=== PATIENT | female | born 1965 | race Caucasian/White ===

== ENCOUNTER 2018-06-06 21:29 | Emergency (ER) | payer BC ==
[2018-06-06 21:30] VITALS: BMI 37.5
[2018-06-06] MEDS ORDERED: Naproxen 550 mg Tab PO STA (22:08)
--- NOTE | 2018-06-06 22:22 | ED PDOC ---
Arrival/HPI - General Chief Complaint: Trauma Time Seen by Provider: 06/06/18 22:08 Historian: Patient - History of Present Illness Narrative History of Present Illness (Text): 06/06/18 22:19 53 year old female, with no significant past medical history, presents to the emergency department complaining of left ankle pain s/p fall. Patient fell down the last few steps of the stairs injuring her left ankle. Patient denies any numbness, decreased range of motion, head injury, loss of consciousness, back pain, neck pain, or any other complaints/injuries. Time/Duration: Prior to Arrival Symptom Onset: Sudden Symptom Course: Unchanged Activities at Onset: Light Context: Other (fell down the stairs) Past Medical History - Provider Review Nursing Documentation Reviewed: Yes - Tetanus Immunization Tetanus Immunization: Unknown - Cardiac Hx Cardiac Disorders: No - Pulmonary Hx Respiratory Disorders: No - Neurological Hx Neurological Disorder: No - HEENT Hx HEENT Disorder: No - Renal Hx Renal Disorder: Yes - Endocrine/Metabolic Hx Endocrine Disorders: Yes Hx Hypothyroidism: Yes - Hematological/Oncological Hx Blood Disorders: No - Integumentary Hx Dermatological Disorder: No - Musculoskeletal/Rheumatological Hx Musculoskeletal Disorders: No - Gastrointestinal Hx Gastrointestinal Disorders: No - Genitourinary/Gynecological Hx Genitourinary Disorders: No - Psychiatric Hx Psychophysiologic Disorder: No Hx Depression: No Hx Emotional Abuse: No Hx Physical Abuse: No Hx Substance Use: No - Surgical History Hx Section: Yes Other/Comment: Kidney - Suicidal Assessment Feels Threatened In Home Enviroment: No Family/Social History - Physician Review Nursing Documentation Reviewed: Yes Family/Social History: No Known Family HX Smoking Status: Never Smoked Hx Alcohol Use: No Hx Substance Use: No Allergies/Home Meds Allergies/Adverse Reactions: Allergies tramadol Adverse Reaction (Severe, Verified 06/06/18 21:52) seizure Review of Systems - Physician Review All systems were reviewed & negative as marked: Yes - Review of Systems Musculoskeletal: absent: Back Pain, Neck Pain, Other (decrease range of motion) Neurological: absent: Other ((-) loss of consciousness (-) numbness) Physical Exam Vital Signs Reviewed: Yes Appearance: Positive for: Well-Appearing, Non-Toxic, Comfortable Pain Distress: Mild Mental Status: Positive for: Alert and Oriented X 3 - Systems Exam Head: Present: Atraumatic, Normocephalic Upper Extremity: Present: Normal Inspection. No: Cyanosis, Edema Lower Extremity: Present: Normal Inspection, NORMAL PULSES, Normal ROM, Tenderness ((+) Tenderness to the lateral aspect of left ankle and lateral aspect of left foot, (-) tenderness to the rest of the left foot or heel), Neurovascularly Intact, Capillary Refill < 2 s, Other ((+) Achilies tendon intact ). No: Edema, Deformity, Temperature Abnormalties Neurological: Present: GCS=15, CN II-XII Intact, Speech Normal, Normal Sensory Function Skin: Present: Warm, Dry, Normal Color. No: Rashes Psychiatric: Present: Alert, Oriented x 3, Normal Insight, Normal Concentration Medical Decision Making ED Course and Treatment: 06/06/18 22:29 Impression: 53 year old female presents complaining of left ankle pain s/p fall down the the last few steps of the stairs. Plan: -- Anaprox DS -- Ankle Left 3 V X-ray -- Foot Left 3 V X-ray -- Reassess and disposition Progress Notes: X-ray left foot and ankle: No fracture, no dislocation, as read by PA. X-ray results discussed with the patient in great detail. Diagnosis of ankle sprain discussed with the patient. Advised rest, ice and to elevate affected joint. Ubaldo wrap applied to the left ankle. Patient instructed on crutch walking. Advised to follow up with primary care physician in 1-2 days without fail. Advised to take medication as prescribed. Return to the emergency room at any time for any new or worsening symptoms. Patient states she fully agrees with and understands discharge instructions. States that she agrees with the plan and disposition. Verbalized and repeated discharge instructions and plan. I have given the patient opportunity to ask any additional questions. - RAD Interpretation Radiology Orders: 06/06/18 22:08 ANKLE LEFT 3 VIEWS ROUTINE [RAD] Stat FOOT LEFT 3 VIEWS ROUTINE [RAD] Stat - Medication Orders Current Medication Orders: Discontinued Medications Naproxen (Anaprox Ds) 550 mg PO ONCE STA Stop: 06/06/18 22:09 Last Admin: 06/06/18 22:44 Dose: 550 mg - PA / FRAMING MECHANIC / Resident Statement MD/DO has reviewed & agrees with the documentation as recorded. - Scribe Statement The provider has reviewed the documentation as recorded by the Parish Nguyen Provider Scribe Attestation: All medical record entries made by the Scribe were at my direction and personally dictated by me. I have reviewed the chart and agree that the record accurately reflects my personal performance of the history, physical exam, medical decision making, and the department course for this patient. I have also personally directed, reviewed, and agree with the discharge instructions and disposition. Disposition/Present on Arrival - Present on Arrival Any Indicators Present on Arrival: No History of DVT/PE: No History of Uncontrolled Diabetes: No Urinary Catheter: No History of Decub. Ulcer: No History Surgical Site Infection Following: None - Disposition Have Diagnosis and Disposition been Completed?: Yes Diagnosis: Left ankle sprain Disposition: HOME/ ROUTINE Disposition Time: 23:30 Patient Plan: Discharge Patient Problems: Current Active Problems Problem Status Onset Left ankle sprain Acute Condition: STABLE Discharge Instructions (ExitCare): Ankle Sprain (DC) Additional Instructions: Thank you for letting us take care of you today. You were treated for left ankle sprain. The emergency medical care you received today was directed at your acute symptoms. If you were prescribed any medication, please fill it and take as directed. It may take several days for your symptoms to resolve. Return to the Emergency Department if your symptoms worsen, do not improve, or if you have any other problems. Please contact your doctor in 2 days for re-evaluation and follow up / or call one of the physicians/clinics you have been referred to that are listed on the Patient Visit Information form that is included in your discharge packet. Bring any paperwork you were given at discharge with you along with any medications you are taking to your follow up visit. Our treatment cannot replace ongoing medical care by a primary care provider (PCP) outside of the emergency department. Thank you for allowing the [facility] team to be part of your care today. If you had an X-Ray : A Radiologist will review the ED reading if any change in treatment is needed we will contact you. Prescriptions: Naproxen 500 mg PO BID PRN #20 tablet PRN Reason: Pain, Moderate (4-7) Referrals: Saul Colin MD [Staff Provider] - Follow up with primary Forms: Nuvilex (Anguillan), WORK NOTE
[2018-06-07 00:14] VITALS: BP 137/85; PULSE 80; RESP 18; TEMP 97.9; O2SAT 100
--- NOTE | 2018-06-07 10:15 | RAD ---
PROCEDURE: Left Ankle Radiographs. HISTORY: pain COMPARISON: None available FINDINGS: BONES: No acute displaced fracture. JOINTS: No dislocation. SOFT TISSUES: Soft tissue swelling. No evidence of radiopaque foreign body. OTHER FINDINGS: None. IMPRESSION: Soft tissue swelling. No acute displaced fracture, dislocation, or significant joint effusion identified. If symptoms persist or if there is clinical concern, x-ray follow-up in 7-10 days should be considered.
--- NOTE | 2018-06-07 10:20 | RAD ---
PROCEDURE: Left Foot Radiographs. HISTORY: pain COMPARISON: None available. FINDINGS: BONES: No acute displaced fracture. JOINTS: No dislocation. SOFT TISSUES: Soft tissue swelling. No evidence of radiopaque foreign body. OTHER FINDINGS: None. IMPRESSION: Soft tissue swelling. No acute displaced fracture, dislocation, or significant joint effusion identified. If symptoms persist, or if there is continued clinical concern, x-ray follow-up in 7-10 days should be considered.
== END 2018-06-07 00:12 | disposition home or self-care (01) ==
LOC: ED 21:29
DX: S93.402A Sprain of unspecified ligament of left ankle, initial encounter (principal); W10.9XXA Fall (on) (from) unspecified stairs and steps, initial encounter; E03.9 Hypothyroidism, unspecified